=== PATIENT | male | born 1945 | race Caucasian/White ===

== ENCOUNTER 2016-07-11 07:54 | Inpatient (IN) | payer OTHER ==
[~2016-07-11] VITALS: Ht 167.6 cm; Wt 77.1 kg
[~2016-07-11 07:54] MED LIST: ADVIL,NUPRIN,M200 MG PO; ALDACTONE50 MG PO; ASPIRIN81 M2 PO; B-100 COMPLEX1 EACH PO; BENADRYL25 MG PO; BISACODYL5 MG PO; DOCUSATE SODIU100 MG PO; FERROUS SULFAT325 MG PO; HYDROCHLOROTHIA25 MG PO; IRON325 M1 PO; LOW DOSE ASPIRI81 M1 PO; METFORMIN HCL500 MG PO; MILK OF MAGNESI10 ML PO; NORVASC10 MG PO; ONDANSETRON ODT4 MG PO; OXYCODONE HCL5 MG PO; PANTOPRAZOLE SO40 MG PO; SAW PALMETTO450 MG PO; ST. JOSEPH ASPI81 MG PO; TAMIFLU75 MG PO; TYLENOL REGULA325 MG PO; VITAMIN B-122500 MCG SL; VITAMIN C1000 MG PO; XARELTO10 MG PO
[2016-07-11] MEDS ORDERED: EPLERENONE25 MG PO (08:44)
[2016-07-11 08:46] VITALS: BP 152/78
[2016-07-11 14:43] VITALS: BP 129/65
[2016-07-11 16:19] LABS: POINT-OF-CARE METER ID UU13113712
[2016-07-11 18:20] VITALS: BP 156/74
[2016-07-11 20:36] VITALS: BP 135/78
[2016-07-11 21:48] LABS: POINT-OF-CARE METER ID UU13113712
[2016-07-11 22:30] VITALS: BP 151/83
[2016-07-12 00:26] VITALS: BP 163/84
[2016-07-12 04:29] VITALS: BP 153/74
[2016-07-12 05:57] LABS: HEMATOCRIT 44.3 % (38.0-50.0); MCV 88.6 FL (86-99)
[2016-07-12 06:20] LABS: ANION GAP 11 MEQ/L (2-14); CHLORIDE 91 MEQ/L (99-109); GFR ESTIMATE (CALCULATED) > 59 mL/min/; GLUCOSE 181 mg/dL (70-99); POTASSIUM 4.6 MEQ/L (3.7-5.4); SAMPLE HEMOLYSIS CHECK 0; SAMPLE ICTERIC CHECK 0; SAMPLE LIPEMIA CHECK 0; SODIUM 128 MEQ/L (136-147); UREA NITROGEN (BUN) 15 mg/dL (9-23)
[2016-07-12 08:10] VITALS: BP 168/77
[2016-07-12 11:33] VITALS: BP 156/74
[2016-07-12 11:46] LABS: POINT-OF-CARE METER ID UU13113712
[2016-07-12 15:25] VITALS: BP 175/79
[2016-07-12 16:16] LABS: POINT-OF-CARE METER ID UU13113712
[2016-07-12 20:09] VITALS: BP 155/74
[2016-07-12 22:06] LABS: POINT-OF-CARE METER ID UU13113712
[2016-07-13 00:09] VITALS: BP 175/81
[2016-07-13 04:27] VITALS: BP 159/77
[2016-07-13 06:04] LABS: HEMATOCRIT 41.7 % (38.0-50.0); MCV 85.6 FL (86-99)
[2016-07-13 06:25] LABS: ANION GAP 10 MEQ/L (2-14); CHLORIDE 90 MEQ/L (99-109); GFR ESTIMATE (CALCULATED) > 59 mL/min/; GLUCOSE 145 mg/dL (70-99); POTASSIUM 4.1 MEQ/L (3.7-5.4); SAMPLE HEMOLYSIS CHECK 0; SAMPLE ICTERIC CHECK 0; SAMPLE LIPEMIA CHECK 0; SODIUM 124 MEQ/L (136-147); UREA NITROGEN (BUN) 12 mg/dL (9-23)
[2016-07-13 08:01] LABS: POINT-OF-CARE METER ID UU13113712
[2016-07-13 08:21] VITALS: BP 148/71
[2016-07-13 11:19] LABS: POINT-OF-CARE METER ID UU13113712
[2016-07-13 12:06] VITALS: BP 142/70
[2016-07-13 15:41] VITALS: BP 131/63
[2016-07-13 16:29] LABS: POINT-OF-CARE METER ID UU13113712
[2016-07-13 20:10] VITALS: BP 151/76
[2016-07-13 22:21] LABS: POINT-OF-CARE METER ID UU13113712
[2016-07-14 00:24] VITALS: BP 126/56
[2016-07-14 04:23] VITALS: BP 142/70
[2016-07-14 06:04] LABS: ANION GAP 6 MEQ/L (2-14); CHLORIDE 99 MEQ/L (99-109); GFR ESTIMATE (CALCULATED) > 59 mL/min/; GLUCOSE 134 mg/dL (70-99); POTASSIUM 4.4 MEQ/L (3.7-5.4); SAMPLE HEMOLYSIS CHECK 0; SAMPLE ICTERIC CHECK 0; SAMPLE LIPEMIA CHECK 0; SODIUM 134 MEQ/L (136-147); UREA NITROGEN (BUN) 13 mg/dL (9-23)
[2016-07-14 07:30] LABS: POINT-OF-CARE METER ID UU13113712
[2016-07-14 08:24] VITALS: BP 131/69
[2016-07-14] MEDS ORDERED: TYLENOL REGULA325 MG PO (08:35)
[2016-07-14] MEDS ORDERED: BENADRYL25 MG PO (08:35)
[2016-07-14] MEDS ORDERED: OXYCODONE HCL5 MG PO (08:36)
[2016-07-14] MEDS ORDERED: XARELTO10 MG PO (08:36)
[2016-07-14] MEDS ORDERED: SENNA PLUS TAB1 EACH PO (08:36)
[2016-07-14] MEDS ORDERED: PROMETHAZINE HC25 M1 PO (08:38)
[2016-07-14] MEDS ORDERED: OXYCONTIN10 MG PO (08:38)
== END 2016-07-14 10:05 | DRG 470 ==
LOC: 2SOUTH 07:54 → 3WEST 07:54 → 2SOUTH 08:42 → 3WEST 14:38 → 2SOUTH 15:41 → 3WEST 07-14 10:05 → 2SOUTH 12-08 08:42
PROVIDERS: Orthopaedic Surgery; Physician Assistant Surgical
PROC: 0SRD0J9 Replacement of Left Knee Joint with Synthetic Substitute, Cemented, Open Approach (ICD-10-PCS; principal; 2016-07-11)
DX: M17.12 Unilateral primary osteoarthritis, left knee (principal); Z96.651 Presence of right artificial knee joint; Z96.611 Presence of right artificial shoulder joint
CPT/HCPCS: 80048; 82948; 85014; 85018; 94799; C1713; J0131; J0690; J1885; J2250; J2405; J2795; J7030; J7040; J7050; L1820

== ENCOUNTER 2016-08-31 14:44 | Inpatient (IN) | payer OTHER ==
[~2016-08-31] VITALS: Ht 165.1 cm; Wt 71.0 kg
[~2016-08-31 14:44] MED LIST changes: +EPLERENONE25 MG PO; +OXYCONTIN10 MG PO; +PROMETHAZINE HC25 M1 PO; +SENNA PLUS TAB1 EACH PO
[2016-08-31 15:20] LABS: EOSINOPHIL (%) 1.1 % (0-5); EOSINOPHIL COUNT 0.1 K/uL (0-0.3); HEMATOCRIT 41.7 % (38.0-50.0); IMMATURE GRANULOCYTE COUNT 0.1 K/uL; INSTRUMENT ABS NEUTROPHIL CT 10.7 K/uL; LYMPHOCYTE COUNT 0.9 K/uL (1.0-2.8); MCHC 32.4 G/DL (30.0-36.0); MCV 86.5 FL (86-99); MEAN PLAT.VOLUME 9.4 uM^3 (9.0-12.4); MONOCYTE (%) 4.7 % (3-12); MONOCYTE COUNT 0.6 K/uL (0-0.8); NEUTROPHIL (%) 85.9 % (45-76); NEUTROPHIL COUNT 10.7 K/uL (1.8-6.4); PLATELET COUNT 346 K/uL (156-360); RBC DIS.WIDTH-CV 13.1 % (11.8-14.6); RBC DIS.WIDTH-SD 41.2 % (39-53); RED BLOOD COUNT 4.82 M/uL (4.00-5.50); WHITE BLOOD COUNT 12.4 K/uL (4.1-10.2)
[2016-08-31 15:32] LABS: CHLORIDE 98 mEq/L (99-109); POTASSIUM 4.8 mEq/L (3.7-5.4); SODIUM 133 mEq/L (136-147)
[2016-08-31 15:34] LABS: GLUCOSE 307 mg/dL (70-99)
[2016-08-31 15:35] LABS: ANION GAP 10 MEQ/L (2-14)
[2016-08-31 15:36] LABS: D-DIMER ELISA 2.02 mg/L FEU (< 0.57); TOTAL BILIRUBIN 0.8 mg/dL (0.0-1.0)
[2016-08-31 15:37] LABS: ALKALINE PHOSPHATASE 103 IU/L (3-129)
[2016-08-31 15:38] LABS: GFR ESTIMATE (CALCULATED) > 59 mL/min/
[2016-08-31 15:39] LABS: UREA NITROGEN (BUN) 17 mg/dL (9-23)
[2016-08-31 15:41] LABS: LIPASE 12 U/L (1.0-51.0)
[2016-08-31 15:46] LABS: TROP-I INTERPRETATION NEGATIVE; TROPONIN-I < 0.01 ng/mL (0.0-0.30)
[2016-08-31] MEDS ORDERED: METHOCARBAMOL500 MG PO (19:37)
[2016-08-31] MEDS ORDERED: VITAMIN B-12250 MCG PO (19:42)
[2016-08-31 22:41] VITALS: BP 158/77
[2016-08-31 23:32] LABS: TROP-I INTERPRETATION NEGATIVE; TROPONIN-I 0.02 ng/mL (0.0-0.30)
[2016-09-01 03:48] VITALS: BP 150/78
[2016-09-01 04:13] LABS: HEMATOCRIT 40.5 % (38.0-50.0); MCH 28.2 PG (29.0-34.0); MCHC 32.8 G/DL (30.0-36.0); PLATELET COUNT 318 K/uL (156-360); RBC DIS.WIDTH-CV 13.1 % (11.8-14.6); RBC DIS.WIDTH-SD 41.1 % (39-53); RED BLOOD COUNT 4.71 M/uL (4.00-5.50); WHITE BLOOD COUNT 7.8 K/uL (4.1-10.2)
[2016-09-01 04:23] LABS: TROP-I INTERPRETATION NEGATIVE; TROPONIN-I 0.01 ng/mL (0.0-0.30)
[2016-09-01 04:29] LABS: CHLORIDE 103 mEq/L (99-109); POTASSIUM 3.9 mEq/L (3.7-5.4); SODIUM 137 mEq/L (136-147)
[2016-09-01 04:31] LABS: GLUCOSE 154 mg/dL (70-99)
[2016-09-01 04:32] LABS: ANION GAP 9 MEQ/L (2-14)
[2016-09-01 04:34] LABS: ALKALINE PHOSPHATASE 124 IU/L (3-129)
[2016-09-01 04:35] LABS: GFR ESTIMATE (CALCULATED) > 59 mL/min/
[2016-09-01 04:36] LABS: UREA NITROGEN (BUN) 14 mg/dL (9-23)
[2016-09-01 06:54] LABS: Estimated Average Glucose 143 mg/dL (70-123); HEMOGLOBIN A1c (GLYCOHEMOGLOB) 6.6 % HGB (Below 5.7)
[2016-09-01 07:35] LABS: POINT-OF-CARE METER ID UU13113700
[2016-09-01 07:38] VITALS: BP 161/81
[2016-09-01 16:34] VITALS: BP 145/75
[2016-09-01 16:43] LABS: POINT-OF-CARE METER ID UU13113700
[2016-09-01 20:00] VITALS: BP 150/77
[2016-09-01 22:05] LABS: POINT-OF-CARE METER ID UU13113700
[2016-09-01 23:53] VITALS: BP 150/78
[2016-09-02 04:18] VITALS: BP 132/72
[2016-09-02 07:08] LABS: EOSINOPHIL (%) 3.5 % (0-5); EOSINOPHIL COUNT 0.2 K/uL (0-0.3); HEMATOCRIT 43.2 % (38.0-50.0); IMMATURE GRANULOCYTE (%) 0.2 % (0.0-0.7); INSTRUMENT ABS NEUTROPHIL CT 4.3 K/uL; LYMPHOCYTE COUNT 1.5 K/uL (1.0-2.8); MCHC 31.9 G/DL (30.0-36.0); MCV 87.6 FL (86-99); MEAN PLAT.VOLUME 9.5 uM^3 (9.0-12.4); MONOCYTE (%) 7.1 % (3-12); MONOCYTE COUNT 0.5 K/uL (0-0.8); NEUTROPHIL (%) 65.4 % (45-76); NEUTROPHIL COUNT 4.3 K/uL (1.8-6.4); PLATELET COUNT 351 K/uL (156-360); RBC DIS.WIDTH-CV 13.4 % (11.8-14.6); RBC DIS.WIDTH-SD 43.4 % (39-53); RED BLOOD COUNT 4.93 M/uL (4.00-5.50); WHITE BLOOD COUNT 6.6 K/uL (4.1-10.2)
[2016-09-02 08:22] VITALS: BP 168/81
[2016-09-02 08:28] LABS: POINT-OF-CARE METER ID UU13113700
[2016-09-02 08:31] LABS: CHLORIDE 101 mEq/L (99-109); POTASSIUM 4.1 mEq/L (3.7-5.4); SODIUM 138 mEq/L (136-147)
[2016-09-02 08:34] LABS: ANION GAP 10 MEQ/L (2-14)
[2016-09-02 08:35] LABS: GLUCOSE 96 mg/dL (70-99); TOTAL BILIRUBIN 0.6 mg/dL (0.0-1.0)
[2016-09-02 08:37] LABS: ALKALINE PHOSPHATASE 114 IU/L (3-129); GFR ESTIMATE (CALCULATED) > 59 mL/min/
[2016-09-02 08:38] LABS: UREA NITROGEN (BUN) 13 mg/dL (9-23)
[2016-09-02 12:54] VITALS: BP 145/74
[2016-09-02 17:11] VITALS: BP 151/78
== END 2016-09-02 19:26 | disposition home or self-care (01) | DRG 418 ==
LOC: EME 14:44 → 5WEST 20:25 → EDOF 20:25 → 5WEST 22:40 → 2EAST 09-01 16:21 → 5WEST 09-01 16:21 → 2EAST 09-02 12:41
PROVIDERS: Emergency Medicine; Hospitalist; Internal Medicine
PROC: 0FT44ZZ Resection of Gallbladder, Percutaneous Endoscopic Approach (ICD-10-PCS; principal; 2016-09-02)
DX: K80.10 Calculus of gallbladder with chronic cholecystitis without obstruction (principal); J98.11 Atelectasis; R09.02 Hypoxemia; G47.33 Obstructive sleep apnea (adult) (pediatric); E11.65 Type 2 diabetes mellitus with hyperglycemia; G43.909 Migraine, unspecified, not intractable, without status migrainosus; G89.29 Other chronic pain; K21.9 Gastro-esophageal reflux disease without esophagitis; I10 Essential (primary) hypertension; M19.90 Unspecified osteoarthritis, unspecified site; Z96.653 Presence of artificial knee joint, bilateral
CPT/HCPCS: 71020; 71275; 74177; 76705; 78226; 80053; 82948; 83036; 83690; 84484; 85025; 85027; 85379; 88304; 93005; 99281; 99285; A9510; G0378; G0480; J0330; J1170; J1644; J2270; J2405; J2710; J2765; J3010; J7030; J7040; S0020; S0028